=== PATIENT | female | born 2005 | race Two or more races ===

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

== ENCOUNTER → 2024-06-02 | Outpatient (CLI) | payer BC, OTHER ==
[~2024-06-02] MED LIST: CARB6.5S44 OT; CEFD300C2 PO; METH4PAK PO
== END | disposition home or self-care (01) ==
LOC: LAB 15:18
PROVIDERS: ATTEND Family Medicine
DX: Z77.21 Contact with and (suspected) exposure to potentially hazardous body fluids (principal)
CPT/HCPCS: 36415; 86703; 86706; 86803; 87340